=== PATIENT | male | born 1980 | race African-American/Black ===

== ENCOUNTER 2017-10-31 08:33 | Day surgery (SDC) | payer MEDICAID, SELFPAY ==
[2017-10-31] VITALS (12 sets, daily range): BP systolic 127–156; BP diastolic 80–95; PULSE 60–84; RESP 12–20; TEMP 36.6–36.7; O2SAT 94–100; BMI 32.8
--- NOTE | 2017-10-31 09:34 | HMH.ANESCL ---
[facility] Anesthesia Checklist - Structural Data Admitted From: Home Planned Operative Procedure/s: cysto w bladder bx Consent for Planned Operative Procedure(s) Verified: Yes Verified Documents: Surgical Consent - Airway Assessment C-Spine Mobility Assessed: Yes TMJ Mobility Assessed: Yes Dentition: Good Dentition - Neurological Assessment Level of Consciousness: Awake, Alert - Psychosocial Assessment Concerns Regarding Surgery: very nervous = versed 2mg iv - Anesthesia Plan Anesthesia Risk discussed: Yes Anesthesia Plan: Verified ASA Class: I Anesthesia Type: General [facility] Anesthesia HX I have reviewed the patient's past medical history: Yes Medical History: Denies:: Cancer, Diabetes Mellitus Type 1, Diabetes Mellitus Type 2, MRSA, Seizures Other Medical History: Denies: Blood Transfusion Reaction Amputation: No Fractures: No *Family Hx:: No significant family history
--- NOTE | 2017-10-31 11:13 | P.PN_ITS ---
[facility] Anesthesia Record Part II Discharge Time: 11:40 Destination: [facility] PACU nurse assessment reviewed?: Yes Patient Condition:: Good Anesthesia Complications:: None
--- NOTE | 2017-10-31 11:13 | P.PN_ITS ---
[facility] Anesthesia Record Part I Intake, IV Amount: 1,400 Estimated blood loss (mL): 0 Urine output (mL): 0 Blood Pressure: 127/86 SaO2: 94 Pulse Rate: 84 Respiratory Rate: 12 Temperature: 97.8 F Patient is:: Awake, Stable Stable to PACU at:: 11:10
--- NOTE | 2017-10-31 11:13 | HMH.ANESII ---
[facility] Anesthesia Record Part II Discharge Time: 11:40 Destination: [facility] PACU nurse assessment reviewed?: Yes Patient Condition:: Good Anesthesia Complications:: None
--- NOTE | 2017-10-31 14:37 | HMH.OPNOTE ---
Date of procedure: 10/31/17 Pre-op Diagnosis:: Pelvic discomfort and voiding symptoms Post-op Diagnosis:: Interstitial cystitis Procedure performed:: Cystoscopy with hydrodistention of the bladder Surgeon:: Ye Reddy MD FAIRING WORKER:: Mata Hatfield Anesthesia: GETA Estimated blood loss (mL): 10 Clinical Note:: Patient is here for cystoscopy. He has had several months of pelvic discomfort and pressure. He has been treated for presumed chronic prostatitis with antibiotic therapy as well as alpha blockers without change of symptoms. Since today for cystoscopy for further evaluation. Operative findings:: After satisfactory general anesthesia he was carefully placed in the dorsolithotomy position. The genital area was prepped and draped in normal fashion. The 20 Japanese cystoscopy sheath was introduced with the 30? lens. Pendulous, bulbous and prostatic urethra were unremarkable. Bladder was inspected entirely. He had 2 ureteral orifice ease on the left with the lateral orifice ease very patulous and likely refluxing. The bladder was filled. He had a rather small bladder capacity at 500 mL. Developed submucosal hemorrhages consistent with interstitial cystitis. Was cycled with maximum capacity being about 650 mL. He has some slight fracture of the bladder mucosa with bleeding. Bladder was drained and cystoscopy removed. Xylocaine jelly was instilled in the urethra. Operative note:: As above Condition: stable Disposition: PACU Complications:: None. She is placed onElmirin 100mg tid , pyrdium 200mg tid and bactrim ds bid 7 days. He will follow-up in 3 weeks
--- NOTE | 2017-10-31 14:40 | P.OP_ITS ---
Date of procedure: 10/31/17 Pre-op Diagnosis:: Pelvic discomfort and voiding symptoms Post-op Diagnosis:: Interstitial cystitis Procedure performed:: Cystoscopy with hydrodistention of the bladder Surgeon:: Ye Reddy MD LOCAL OWNER OPERATOR TRUCK DRIVER:: Mata Hatfield Anesthesia: GETA Estimated blood loss (mL): 10 Clinical Note:: Patient is here for cystoscopy. He has had several months of pelvic discomfort and pressure. He has been treated for presumed chronic prostatitis with antibiotic therapy as well as alpha blockers without change of symptoms. Since today for cystoscopy for further evaluation. Operative findings:: After satisfactory general anesthesia he was carefully placed in the dorsolithotomy position. The genital area was prepped and draped in normal fashion. The 20 Qatari cystoscopy sheath was introduced with the 30? lens. Pendulous, bulbous and prostatic urethra were unremarkable. Bladder was inspected entirely. He had 2 ureteral orifice ease on the left with the lateral orifice ease very patulous and likely refluxing. The bladder was filled. He had a rather small bladder capacity at 500 mL. Developed submucosal hemorrhages consistent with interstitial cystitis. Was cycled with maximum capacity being about 650 mL. He has some slight fracture of the bladder mucosa with bleeding. Bladder was drained and cystoscopy removed. Xylocaine jelly was instilled in the urethra. Operative note:: As above Condition: stable Disposition: PACU Complications:: None. She is placed onElmirin 100mg tid , pyrdium 200mg tid and bactrim ds bid 7 days. He will follow-up in 3 weeks
== END 2017-10-31 12:25 | disposition home or self-care (01) ==
PROVIDERS: Family Provider Physician Assistant; PCP Nurse Practitioner Family; Visit Provider Urology
PROC: 0TJB8ZZ Inspection of Bladder, Via Natural or Artificial Opening Endoscopic (ICD-10-PCS; CPT 52000; principal; 2017-10-31 10:00)
DX: N30.10 Interstitial cystitis (chronic) without hematuria (principal)
CPT/HCPCS: 52260; 96374; J2270

== ENCOUNTER 2020-02-07 11:34 | Emergency (ER) | payer MEDICAID, SELFPAY ==
--- NOTE | 2020-02-07 11:28 | ECG_ITS ---
APPROVED REPORT Exam: Resting ECG HR:59 bpm ECG Measurements Heart Rate 59 AXES WI 160 P 55 QRSd 90 QRS 26 QT 420 T 5 QTc 415 <Conclusion> Sinus bradycardia Possible Left atrial enlargement Left ventricular hypertrophy Nonspecific ST and T wave abnormality Abnormal ECG Electronically signed by : Arthur Pederson, 02/10/2020 17:14:26
--- NOTE | 2020-02-07 11:37 | HMH.EDGENADL ---
ED Disposition Clinical Impression: Epigastric pain, Hiatal hernia Disposition: Home, Self-Care Condition on Discharge: Good Instructions: DI for Hiatal Hernia, DI for Abdominal Pain-Adult Additional Instructions: Prilosec as prescribed. You are being provided with a list of physicians available for follow-up of your condition. Please call a physician on this list to arrange a follow-up appointment as soon as possible. Additional instructions for ABDOMINAL PAIN: See your physician as soon as possible for further evaluation. Return immediately if worsening abdominal pain, vomiting, shortness of breath, fever, vomiting of blood or abdominal distention. Prescriptions: Omeprazole Magnesium [Prilosec Otc 20mg Tab] 20 mg PO DAILY #10 tab Transmission Status: Pending to [facility] Referrals: Provider,Referral, MD [Primary Care Provider] - - Critical Care Critical Care Time: No Attestation: On , the high probability of a clinically significant, sudden or life threatening deterioration of the following system(s) required my full and direct attention, intervention and personal management. The time I documented below is in addition to time spent performing reported procedures but includes the following listed in this critical care notation. Medical Decision Making - Isacc Inquiry Pt receiving controlled substance: Yes Isacc was queried for this patient: No Reason not queried -: Emergent pt cond-no time Risks and benefits of using a controlled substance: were not discussed with pt by me Vital Signs: 02/07/20 11:41 02/07/20 11:46 02/07/20 12:13 Temperature 98.3 F Temperature Source Oral Pulse Rate [Right Brachial] 99 H 100 H 55 L Respiratory Rate 16 Blood Pressure [Right Arm] 139/86 139/86 178/101 H Blood Pressure Mean [Right Arm] 103 103 126 Blood Pressure Source [Right Arm] Automatic Cuff Automatic Cuff Automatic Cuff Blood Pressure Position [Right Arm] Sitting Sitting Sitting 02 Sat by Pulse Oximetry 98 98 100 Oxygen Delivery Method Room Air Room Air Room Air 02/07/20 12:48 02/07/20 13:59 Temperature Temperature Source Pulse Rate [Right Brachial] 74 52 L Respiratory Rate Blood Pressure [Right Arm] 167/107 H 120/75 Blood Pressure Mean [Right Arm] 127 90 Blood Pressure Source [Right Arm] Automatic Cuff Blood Pressure Position [Right Arm] Sitting Supine 02 Sat by Pulse Oximetry 100 99 Oxygen Delivery Method Room Air Room Air - Lab Data Lab Results 02/07/20 11:40: WBC 7.1, RBC 5.36, Hgb 14.9, Hct 44.6, MCV 83.2, MCH 27.7, MCHC 33.3, RDW 13.0, Plt Count 262, MPV 8.1, Neut % (Auto) 69.0, Lymph % (Auto) 26.5, [place] % (Auto) 3.6, Eos % (Auto) 0.6, Baso % (Auto) 0.3, Neut # (Auto) 4.9, Lymph # (Auto) 1.9, [place] # (Auto) 0.3, Eos # (Auto) 0.0, Baso # (Auto) 0.0 02/07/20 11:40: Sodium 142, Potassium 4.0, Chloride 106, Carbon Dioxide 27, Anion Gap 13.0, BUN 6 L, Creatinine 0.80, Estimated Creat Clear 160, Estimated GFR 107, Est GFR ( Amer) 130, Glucose 135 H, Calcium 10.0, Total Bilirubin 0.4, AST 46, ALT 61, Alkaline Phosphatase 72, Troponin I < 0.01, Total Protein 8.1, Albumin 4.6, Globulin 3.5 H, Albumin/Globulin Ratio 1.3, Amylase 79, Lipase 41 02/07/20 13:05: Urine Color Yellow, Urine Appearance Clear, Urine pH 8.5, Ur Specific [place] 1.010, Urine Protein Negative, Urine Glucose (UA) Negative, Urine Ketones Negative, Urine Blood Negative, Urine Nitrate Negative, Urine Bilirubin Negative, Urine Urobilinogen 0.2, Ur Leukocyte Esterase Negative, Urine RBC 5-10, Urine WBC Occasional, Ur Squamous Epith Cells Occasional, Urine Bacteria None Result diagrams: 02/07/20 11:40 02/07/20 11:40 Orders (Tests/Meds): ED MEDICATIONS Generic Name Dose Route Start Last Admin Trade Name Freq PRN Reason Stop Dose Admin Sodium Chloride 10 ml 02/07/20 12:49 Rad-Saline Flush 10ml Syringe IV 03/08/20 12:48 NEEDED PRN Maintain IV Site Sodium Chloride 8 ml 02/07/20
[2020-02-07 11:41] VITALS: BP 139/86; PULSE 99; RESP 16; TEMP 36.8; O2SAT 98; BMI 29.9
[2020-02-07 11:46] VITALS: BP 139/86; PULSE 100; O2SAT 98
--- NOTE | 2020-02-07 11:48 | CT_ITS ---
PROCEDURE: CT ABDOMEN PELVIS W CON CLINICAL INDICATION: SOA/ABD pain COMPARISON: CT ABDOMEN PELVIS W CON from 03/29/2019 TECHNIQUE: IV Contrast: 75ML OPTIRAY 350 Oral Contrast none given Axial images obtained with sagittal and coronal reformats. All CT scans at the facility use one or more dose reduction, viz: automated exposure control, ma/kV adjustment per patient size (including targeted exams where dose is matched to indication, i.e. head), or iterative reconstruction technique. FINDINGS: Lower thorax: The lower lung urban are clear and there is no pleural fluid. There is borderline cardiomegaly. ABDOMEN: Liver: No masses or biliary dilatation. Gallbladder: Somewhat distended but no definite gallstones are seen. Pancreas: No masses or peripancreatic fluid collections. Spleen: unremarkable Adrenals: unremarkable Kidneys/ureters: The kidneys are normal size and show symmetrical function both appearing normal. ABDOMEN & PELVIS: Stomach bowel: The stomach is normal in size and contains high density material likely secondary to ant acids which the patient admitted to taking before coming to the hospital emergency room. There is a small to moderate size sliding hiatal hernia. The small bowel appears normal. There is moderate stool in the ascending and transverse colon, the descending and sigmoid colon are mostly decompressed. Peritoneum: No abnormal fluid collections. No obvious inflammatory changes. No free air. Lymph nodes: No enlarged lymph nodes apparent. Vasculature: No evidence of abdominal aortic aneurysm. No retroperitoneal hemorrhage evident. Bones: No acute fracture PELVIS: Reproductive: unremarkable Bladder: Nondistended. No obvious stones or masses. Appendix: The appendix is normal caliber and air-filled IMPRESSION: Hiatal hernia along with scattered high density material within the stomach due to ingested Antacids, otherwise no acute abdominal or pelvic pathology identified Dictated by: Dr. Tomasz Colon MD 02/07/2020 13:[address] Tomasz Colon MD in [place] 02/07/2020 13:07
--- NOTE | 2020-02-07 11:48 | XR_ITS ---
PROCEDURE: XR CHEST 2V CLINICAL HISTORY: SOA/abd pain COMPARISON: CXR1VP XR chest portable from 04/05/2018 XR CHEST 2V from 03/29/2019 FINDINGS: The cardiomediastinal silhouette and pulmonary vascularity are within normal limits. The lungs are clear without infiltrates, suspicious nodules, or pleural effusions. Right hemidiaphragm is slightly elevated not significantly changed. No acute bony anomalies. IMPRESSION: No acute findings. Dictated by: Kp Duque MD 02/07/2020 19:22 Electronically signed by Kp Duque MD in [place] 02/07/2020 19:22
--- NOTE | 2020-02-07 12:12 | PC.NURSE ---
Pt is writhing around in bed, crying at this time.
[2020-02-07 12:13] VITALS: BP 178/101; PULSE 55; O2SAT 100
--- NOTE | 2020-02-07 12:29 | PC.NURSE ---
pt taken to ct
--- NOTE | 2020-02-07 12:45 | PC.NURSE ---
Pt returned from rad.
[2020-02-07 12:48] VITALS: BP 167/107; PULSE 74; O2SAT 100
[2020-02-07 12:58] LABS: Basophils % 0.3 % (0.1-2.0); Eosinophils % 0.6 % (0.1-12.0); Hematocrit 44.6 % (42.0-52.0); Hemoglobin 14.9 g/dL (14.1-18.0); Lymphocytes # 1.9 K/mm3 (0.7-4.5); Lymphocytes % 26.5 % (10-50); Mean Corpuscular HGB Conc 33.3 g/dL (31.8-35.4); Mean Corpuscular Hemoglobin 27.7 pg (27.0-31.2); Mean Corpuscular Volume 83.2 fl (80-94); Mean Platelet Volume 8.1 fl (7.4-10.4); Monocytes # 0.3 K/mm3 (0.1-1.0); Monocytes % 3.6 % (1.7-9.3); Neutrophils # 4.9 K/mm3 (1.8-7.8); Platelet Count 262 K/mm3 (142-424); Red Blood Count 5.36 M/mm3 (4.60-6.20); White Blood Count 7.1 K/mm3 (4.8-10.8)
[2020-02-07 13:02] LABS: Chloride 106 mmol/L (98-107); Sodium 142 mmol/L (136-145)
--- NOTE | 2020-02-07 13:03 | PC.NURSE ---
Pt up to restroom
[2020-02-07 13:05] LABS: Alanine Aminotransferase 61 U/L (12-78); Amylase 79 U/L (30-110); Aspartate Amino Transferase 46 U/L (17-59); Blood Urea Nitrogen 6 mg/dl (9-20); Carbon Dioxide 27 mmol/L (22.0-30.0); Creatinine Clearance Estimated 160 mL/min (50-200); Estimated Glomerular Filt Rate 107 ml/min (>60); GFR (African American) 130 ML/MIN (>60)
[2020-02-07 13:06] LABS: Albumin Level 4.6 g/dl (3.5-5.0); Albumin/Globulin Ratio 1.3 (1.1-1.8); Alkaline Phosphatase 72 U/L (38-126); Bilirubin,Total 0.4 mg/dl (0.2-1.3); Globulin 3.5 g/dL (1.3-3.2); Glucose 135 mg/dl (74-100); Lipase 41 U/L (23-300); Total Protein,Serum 8.1 g/dl (6.3-8.2)
[2020-02-07 13:07] LABS: Microscopic, Urine URINE MICROSCOPIC (MICROSCOPIC)
[2020-02-07 13:11] LABS: Appearance,Urine CLEAR (Clear); Bilirubin,Urine Negative (Negative); Blood, Urine Negative (Negative); Color,Urine YELLOW (Yellow); Glucose,Urine (UA) Negative (Negative); Ketones,Urine Negative (Negative); Leukocyte Esterase,Urine Negative (Negative); Nitrate,Urine Negative (Negative); PH,Urine 8.5 (5.0-8.5); Protein,Urine Negative (Negative); Urobilinogen,Urine 0.2 EU/dl (0.2)
[2020-02-07 13:23] LABS: Squamous Epithelial Cell,Urine Occasional #/hpf (0-5); WBC,Urine Occasional #/hpf (0-3)
[2020-02-07 13:32] LABS: Troponin I < 0.01 ng/ml (0.00-0.034)
[2020-02-07 13:59] VITALS: BP 120/75; PULSE 52; O2SAT 99
--- NOTE | 2020-02-07 14:03 | US_ITS ---
PROCEDURE: US GALLBLADDER CLINICAL INDICATION: epigastric pain Acute epigastric pain COMPARISON: No exams were available for comparison FINDINGS: Pancreas: Unremarkable/Not well seen Liver: Unremarkable. There is appropriate direction of blood flow within a non dilated portal vein. Right kidney: Unremarkable appearing. No hydronephrosis. Gallbladder: No stones are evident. There is no gallbladder wall thickening. Common duct is normal in diameter. There is a small amount of sludge in the gallbladder IMPRESSION: Small amount of gallbladder sludge otherwise negative gallbladder Dictated by: Kp Duque MD 02/07/2020 16:08 Electronically signed by Kp Duque MD in [place] 02/07/2020 16:08
--- NOTE | 2020-02-07 14:11 | PC.NURSE ---
pt to rad
--- NOTE | 2020-02-07 14:37 | PC.NURSE ---
back from gall bladder ultrasound
[2020-02-07 14:55] VITALS: BP 120/80; PULSE 74; RESP 16; TEMP 36.7; O2SAT 98
== END 2020-02-07 14:56 | disposition home or self-care (01) ==
PROVIDERS: Emergency Provider Emergency Medicine
DX: R10.13 Epigastric pain (principal); K44.9 Diaphragmatic hernia without obstruction or gangrene; F17.210 Nicotine dependence, cigarettes, uncomplicated
CPT/HCPCS: 71046; 74177; 76705; 80053; 81001; 82150; 83690; 84484; 85025; 93005; 96365; 96375; 99284; J2405; Q9967

== ENCOUNTER → 2020-07-20 18:29 | Outpatient (CLI) | payer MEDICAID, SELFPAY ==
[2020-07-20 18:54] LABS: Basophils % 0.4 % (0.1-2.0); Eosinophils # 0.1 K/mm3 (0.0-0.4); Eosinophils % 1.8 % (0.1-12.0); Hematocrit 43.1 % (42.0-52.0); Hemoglobin 14.6 g/dL (14.1-18.0); Lymphocytes # 1.9 K/mm3 (0.7-4.5); Lymphocytes % 43.8 % (10-50); Mean Corpuscular HGB Conc 33.9 g/dL (31.8-35.4); Mean Corpuscular Hemoglobin 29.4 pg (27.0-31.2); Mean Corpuscular Volume 86.6 fl (80-94); Mean Platelet Volume 9.4 fl (7.4-10.4); Monocytes # 0.2 K/mm3 (0.1-1.0); Monocytes % 5.7 % (1.7-9.3); Neutrophils # 2.1 K/mm3 (1.8-7.8); Neutrophils % 48.3 % (37.0-80.0); Platelet Count 241 K/mm3 (142-424); Red Blood Count 4.97 M/mm3 (4.60-6.20); Red Cell Distribution Width 13.5 % (11.5-17.5); White Blood Count 4.3 K/mm3 (4.8-10.8)
[2020-07-20 18:58] LABS: Chloride 102 mmol/L (98-107); Potassium 4.4 mmoL/L (3.5-5.1); Sodium 140 mmol/L (136-145)
[2020-07-20 19:00] LABS: Blood Urea Nitrogen 7 mg/dl (9-20); Estimated Glomerular Filt Rate 107 ml/min (>60); GFR (African American) 129 ML/MIN (>60)
[2020-07-20 19:01] LABS: Alanine Aminotransferase 30 U/L (12-78); Albumin Level 4.4 g/dl (3.5-5.0); Albumin/Globulin Ratio 1.4 (1.1-1.8); Alkaline Phosphatase 57 U/L (38-126); Anion Gap 9.4 mEq/L (5-15); Aspartate Amino Transferase 33 U/L (17-59); Bilirubin,Total 0.4 mg/dl (0.2-1.3); Calcium 9.6 mg/dl (8.4-10.2); Carbon Dioxide 33 mmol/L (22.0-30.0); Chol/HDL Ratio 3.9 (1-3.5); Cholesterol 182 mg/dl (140-200); Globulin 3.1 g/dL (1.3-3.2); Glucose 95 mg/dl (74-100); HDL Cholesterol 47 mg/dl (40-60); Total Protein,Serum 7.5 g/dl (6.3-8.2); Triglycerides 101 mg/dl (30-150); VLDL Cholesterol 20 mg/dL (0-40)
[2020-07-20 19:13] LABS: Direct LDL Cholesterol 99.68 mg/dL (100-129)
[2020-07-20 19:17] LABS: Free T4 (Free Thyroxine) 1.12 ng/dl (0.78-2.19)
[2020-07-20 19:31] LABS: Thyroid Stimulating Hormone 1.01 uIU/mL (0.465-4.68)
[2020-07-20 21:00] LABS: 25-OH Vitamin D, Total 12.9 ng/mL (30-100)
[2020-07-22 10:57] LABS: Hep A Ab, IgM Negative (Negative); Hep A Ab, Total Positive (Negative); Hep B Core Ab, Total Negative (Negative)
[2020-07-22 11:36] LABS: Hep B Surface Ab, Qual Non Reactive (.); Hepatitis C Antibody <0.1 s/co ratio (0.0-0.9)
== END ==
PROVIDERS: Visit Provider Emergency Medicine
DX: R10.13 Epigastric pain (principal); K44.9 Diaphragmatic hernia without obstruction or gangrene; K52.9 Noninfective gastroenteritis and colitis, unspecified; E55.9 Vitamin D deficiency, unspecified
CPT/HCPCS: 80053; 80061; 82306; 84439; 84443; 85025; 86704; 86706; 86708; 87380

== ENCOUNTER → 2020-08-05 09:58 | Outpatient (CLI) | payer MEDICAID, SELFPAY ==
--- NOTE | 2020-08-05 09:59 | NM_ITS ---
PROCEDURE: NM HEPATOBILIARY WO PHARM Referring Doctor: Jose Antonio Wilson Patient Age:40Y CLINICAL INDICATION: epigastric pain and gastroenteritis No gallstones on ultrasound COMPARISON: No exams were available for comparison TECHNIQUE: DOSE: 8.31 mCi TC Choletec FINDINGS: Homogeneous activity is present within the hepatic parenchyma. Prompt activity into the biliary tree Activity is present in the gallbladder by 5-10 minutes. delay of activity in the small bowel; small-bowel activity is evident on images subsequent to CCK administration.-This is a nonspecific observation but can be seen with sphincter of Oddi spasm or dysfunction The gallbladder ejection fraction is calculated to be 85 percent following 1.8 mcg CCK IV administration.. CCK-The patient had only slight discomfort/pain with CCK infusion. IMPRESSION: Prompt visualization of the gallbladder 85% EF following CCK administration Delayed visualization of activity in small bowel noted Very nonspecific observation but can be seen with sphincter of Oddi spasm or dysfunction 85 percent gallbladder ejection fraction following CCK but Dictated by: Michael Christy MD 08/05/2020 12:26 Michael Christy MD in [place] 08/05/2020 12:26
== END ==
PROVIDERS: PCP Emergency Medicine; Visit Provider Emergency Medicine
DX: R10.13 Epigastric pain (principal); K52.9 Noninfective gastroenteritis and colitis, unspecified; K44.9 Diaphragmatic hernia without obstruction or gangrene
CPT/HCPCS: 78226; A9537; J2805

== ENCOUNTER → 2020-09-01 17:54 | Outpatient (CLI) | payer OTHER, SELFPAY ==
[2020-09-01 19:28] LABS: Coronavirus 19 IgG Antibody Negative (Negative); Coronavirus 19 IgM Antibody Negative (Negative)
== END ==
PROVIDERS: Visit Provider Internal Medicine Gastroenterology
DX: Z01.812 Encounter for preprocedural laboratory examination (principal); Z20.828 Contact with and (suspected) exposure to other viral communicable diseases; Z13.810 Encounter for screening for upper gastrointestinal disorder; K21.9 Gastro-esophageal reflux disease without esophagitis
CPT/HCPCS: 36415; 86328

== ENCOUNTER 2020-09-04 08:31 | Day surgery (SDC) | payer OTHER, SELFPAY ==
[2020-09-01 12:44] VITALS: BMI 33.4
[2020-09-04] VITALS (7 sets, daily range): BP systolic 136–154; BP diastolic 88–98; PULSE 53–79; RESP 16–18; TEMP 36.3; O2SAT 97–100
--- NOTE | 2020-09-04 10:26 | P.PCN_ITS ---
[facility] Procedure Note Procedure Note:: Upper Endoscopy Procedure Report: Esophagogastroduodenoscopy with cold biopsies Endoscopost: Zain Nava II, MD Referring Physician: Jose Antonio Wilson MD Date of Procedure: September 04, 2020 Equipment: Olympus GIF 180 standard upper endoscope Sedation: MAC sedation Indications: Mr. Payan is a 40-year-old gentleman with dyspepsia. He has had epigastric abdominal discomfort for several months. He reports bloating and fullness. He has had some nausea and early satiety. He reports no significant reflux or belching. He has had no dysphagia or weight loss. He has some minor heartburn. He occasionally will have red stools and is not certain whether this could be some blood or something that he ingested. This is his first upper endoscopy. Procedure: Prior to the procedure, a history and physical exam was performed, and patient's medications and allergies were reviewed. The risks, benefits and alternatives of the sedation and procedure were discussed with the patient. All questions were answered and informed consent was obtained. The patient was brought to the procedure room. Patient identification and proposed procedure were verified by the physician and the nurse. The patient was placed in a left lateral decubitus position and the scope was passed under direct vision. Throughout the procedure, the patient's blood pressure, pulse, and oxygen saturations were monitored continuously. The upper GI endoscopy was accomplished without difficulty. The patient tolerated the procedure well. Findings: The scope was passed directly into the upper esophagus and advanced to the third portion of the duodenum. The post bulbar duodenum and duodenal bulb were normal with normal mucosa and conniventes. The scope was withdrawn through a normal duodenal bulb and pylorus into the stomach. There was some linear reactive gastropathy of the antrum of the stomach. The remainder of the antrum, body and fundus of the stomach were grossly normal. Upon retroflexion there was a very small sliding 1 to 2 cm hiatal hernia. 2 biopsies were taken in the antrum and along the lesser curvature for histology to rule out gastritis and/or H pylori. The scope was then withdrawn into the esophagus. There was a serrated Z-line and biopsies were taken at the GE junction. There was no evidence of reflux esophagitis or [place]'s. There were mild tertiary contractions and evidence of mild esophageal dysmotility. The remainder of the esophageal mucosa was normal. Impression: 1. Nonerosive GERD with mild esophageal dysmotility and very small sliding 1 to 2 cm hiatal hernia 2. Mild linear reactive gastropathy Plan: I will follow-up the biopsies and I will discuss the findings with the patient and family. 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 We will discuss dietary measures and treatment options. I would also consider diagnostic colonoscopy.
--- NOTE | 2020-09-04 10:42 | HMH.ANESCL ---
[facility] Anesthesia Checklist - Patient Identification Patient Identification: Arm Band - Structural Data Admitted From: Home Planned Operative Procedure/s: egd Consent for Planned Operative Procedure(s) Verified: Yes Verified Documents: Surgical Consent - Additional verifications Anesthesia Reactions: No Hx Blood Transfusions: No Blood Transfusion Reaction: No - Anesthesia Plan Anesthesia Risk discussed: Yes ASA Class: II Anesthesia Type: General [facility] History Medical History: Reports:: Hiatal Hernia Denies:: Cancer, Diabetes Mellitus Type 1, Diabetes Mellitus Type 2, Internal Pacemaker, MRSA, Seizures *Have you ever received a pneumonia vaccine?: No (unknown) *Have you received a flu vaccine this season?: No (unknown) Other Medical History: Denies: Blood Transfusion Reaction Anesthesia experience/problems:: none Other Surgeries: Yes: No Previous Surgery. No: Pacemaker Amputation: No Fractures: No - *Social History Smoking Status: Current every day smoker Tobacco Type: cigarettes # Packs/Day (cigarettes): 1 Alcohol Intake: current Alcohol Intake Frequency:: holidays/special occasions only Substance Use Type: marijuana *Occupational Status:: employed Housing: house Household Members: spouse *Travel in the last 8 weeks: None Family Hx:: Cancer, Diabetes, Hypertension, Stroke, Substance abuse, Alcoholism, Mental illness
== END 2020-09-04 11:40 | disposition home or self-care (01) ==
PROVIDERS: PCP Emergency Medicine; Visit Provider Internal Medicine Gastroenterology
PROC: 0DJ08ZZ Inspection of Upper Intestinal Tract, Via Natural or Artificial Opening Endoscopic (ICD-10-PCS; CPT 43235; principal; 2020-09-04 10:00)
DX: K21.9 Gastro-esophageal reflux disease without esophagitis; K22.4 Dyskinesia of esophagus; K31.9 Disease of stomach and duodenum, unspecified; K44.9 Diaphragmatic hernia without obstruction or gangrene
CPT/HCPCS: 43239

== ENCOUNTER → 2020-12-14 14:53 | Outpatient (POV) | payer OTHER, SELFPAY ==
[2020-12-16 14:18] LABS: H. pylori Breath Test Positive (Negative)
== END ==
PROVIDERS: Visit Provider Nurse Practitioner Family
DX: R10.13 Epigastric pain (principal); K30 Functional dyspepsia; B96.81 Helicobacter pylori [H. pylori] as the cause of diseases classified elsewhere; K58.1 Irritable bowel syndrome with constipation
CPT/HCPCS: 83013

== ENCOUNTER → 2021-03-29 11:13 | Outpatient (POV) | payer OTHER, SELFPAY | PROVIDERS: Visit Provider Nurse Practitioner Family | DX: Z00.00 Encounter for general adult medical examination without abnormal findings (principal) ==

== ENCOUNTER 2021-11-22 14:38 | Emergency (ER) | payer SELFPAY ==
--- NOTE | 2021-11-22 14:38 | ECG_ITS ---
APPROVED REPORT Exam: Resting ECG HR:68 bpm ECG Measurements Heart Rate 68 AXES MS 162 P 72 QRSd 101 QRS 40 QT 388 T 34 QTc 406 Conclusion SINUS RHYTHM WITH MARKED SINUS ARRHYTHMIA POSSIBLE LEFT ATRIAL ENLARGEMENT [-0.1mV P-WAVE IN V1/V2] POSSIBLE LEFT VENTRICULAR HYPERTROPHY [VOLTAGE CRITERIA PLUS LAE OR QRS WIDENING] NONSPECIFIC T-WAVE ABNORMALITY ABNORMAL ECG UNCONFIRMED REPORT Electronically signed by : Arthur Pederson MD 11/24/2021 10:14:04
[2021-11-22 14:43] VITALS: BP 150/97; PULSE 55; RESP 18; TEMP 36.6; O2SAT 99; BMI 31.6
--- NOTE | 2021-11-22 14:57 | HMH.EDCP ---
ED Disposition Clinical Impression: Atypical chest pain, Epigastric pain Disposition: Home, Self-Care Condition on Discharge: Good Instructions: DI for Atypical Chest Pain Prescriptions: Famotidine [Pepcid 20mg Tablet] 20 mg PO DAILY #20 tab Transmission Status: Pending to [facility] Referrals: Provider,MD Shellie [Primary Care Provider] - Jose Antonio Wilson MD [Staff Physician] - - Critical Care Critical Care Time: No Attestation: On 11/22/21, the high probability of a clinically significant, sudden or life threatening deterioration of the following system(s) required my full and direct attention, intervention and personal management. The time I documented below is in addition to time spent performing reported procedures but includes the following listed in this critical care notation. Medical Decision Making - Medical Records Medical records reviewed: Yes: I reviewed the patient's medical records. - Isacc Inquiry Pt receiving controlled substance: No Vital Signs: 11/22/21 14:43 11/22/21 15:53 Temperature 97.8 F Temperature Source Oral Pulse Rate 57 L Pulse Rate [Left Radial] 55 L Respiratory Rate 18 20 Blood Pressure 145/101 H Blood Pressure [Right Arm] 150/97 H Blood Pressure Mean [Right Arm] 114 Blood Pressure Source [Right Arm] Automatic Cuff Blood Pressure Position [Right Arm] Sitting 02 Sat by Pulse Oximetry 99 94 L Oxygen Delivery Method Room Air Room Air - Lab Data Lab Results 11/22/21 14:45: WBC 6.3, RBC 5.28, Hgb 14.2, Hct 46.0, MCV 87.2, MCH 27.0, MCHC 30.9 L, RDW 13.6, Plt Count 239, MPV 8.5, Neut % (Auto) 49.2, Lymph % (Auto) 42.9, [place] % (Auto) 5.6, Eos % (Auto) 0.9, Baso % (Auto) 1.5, Neut # (Auto) 3.1, Lymph # (Auto) 2.7, [place] # (Auto) 0.4, Eos # (Auto) 0.1, Baso # (Auto) 0.1 11/22/21 14:45: Sodium 140, Potassium 4.1, Chloride 105, Carbon Dioxide 29, Anion Gap 10.1, BUN 8 L, Creatinine 0.80, Estimated Creat Clear 161, Estimated GFR 106, Est GFR ( Amer) 128, Glucose 89, Calcium 9.1, Total Bilirubin 0.4, AST 53, ALT 40, Alkaline Phosphatase 52, Troponin I < 0.01, NT-Pro-B Natriuret Pep 14.2, Total Protein 7.5, Albumin 4.4, Globulin 3.1, Albumin/Globulin Ratio 1.4, Lipase 42 Result diagrams: 11/22/21 14:45 11/22/21 14:45 Orders (Tests/Meds): ED MEDICATIONS Generic Name Dose Route Start Last Admin Trade Name Freq PRN Reason Stop Dose Admin Sodium Chloride 8 ml 11/22/21 14:45 Sodium Chloride 0.9% 10ml Vial IV 12/22/21 14:44 NEEDED PRN dilute pepcid Discontinued Medications Generic Name Dose Route Start Last Admin Trade Name Freq PRN Reason Stop Dose Admin Belladonna Alkaloids 60 ml 11/22/21 14:57 11/22/21 15:01 Gi Cocktail 60ml Udc PO 11/22/21 14:58 60 ml ONCE ONE Administration Famotidine 20 mg 11/22/21 14:45 11/22/21 15:01 Famotidine 20mg/2ml Vial IV 11/22/21 14:46 20 mg ONCE ONE Administration Ketorolac Tromethamine 30 mg 11/22/21 14:45 11/22/21 15:01 Ketorolac 30mg/Ml Vial IV 11/22/21 14:46 30 mg ONCE ONE Administration ORDERS Category Date Time Status XR chest portable Stat Exams 11/22/21 15:44 Taken Troponin I Q3H Lab 11/22/21 17:45 Ordered Troponin I Q3H Lab 11/22/21 20:45 Ordered - Radiology Data #1 Image(s): Chest Image Reviewed: Yes I reviewed the patient's radiology results, Yes I reviewed the patient's radiology image, Yes I have reviewed radiologist's interpretation Preliminary Findings: Normal/NAD, No Fracture Seen - ECG Data Tracing #1 I reviewed this ECG and interpreted as documented below: Sinus rhythm with Sinus Arrhythmia. Nonspecific Changes. No Ventricular Rate 60 Bpm, Normal QTC. ECG initial impression date: 11/22/21 ECG initial impression time: 15:00 - Reevaluation(s) Time: 16:16 Reevaluation #1: On reevaluation, patient is feeling much better. Troponin was negative. I do believe patient symptoms more consistent with d
[2021-11-22 14:58] LABS: Basophils # 0.1 K/mm3 (0-0.2); Basophils % 1.5 % (0.1-2.0); Eosinophils # 0.1 K/mm3 (0.0-0.4); Eosinophils % 0.9 % (0.1-12.0); Hemoglobin 14.2 g/dL (14.1-18.0); Lymphocytes # 2.7 K/mm3 (0.7-4.5); Lymphocytes % 42.9 % (10-50); Mean Corpuscular HGB Conc 30.9 g/dL (31.8-35.4); Mean Corpuscular Volume 87.2 fl (80-94); Mean Platelet Volume 8.5 fl (7.4-10.4); Monocytes # 0.4 K/mm3 (0.1-1.0); Monocytes % 5.6 % (1.7-9.3); Neutrophils # 3.1 K/mm3 (1.8-7.8); Neutrophils % 49.2 % (37.0-80.0); Platelet Count 239 K/mm3 (142-424); Red Blood Count 5.28 M/mm3 (4.60-6.20); Red Cell Distribution Width 13.6 % (11.5-17.5); White Blood Count 6.3 K/mm3 (4.8-10.8)
[2021-11-22 15:03] LABS: Alanine Aminotransferase 40 U/L (12-78); Albumin Level 4.4 g/dl (3.5-5.0); Albumin/Globulin Ratio 1.4 (1.1-1.8); Alkaline Phosphatase 52 U/L (38-126); Anion Gap 10.1 mEq/L (5-15); Aspartate Amino Transferase 53 U/L (17-59); Bilirubin,Total 0.4 mg/dl (0.2-1.3); Blood Urea Nitrogen 8 mg/dl (9-20); Calcium 9.1 mg/dl (8.4-10.2); Carbon Dioxide 29 mmol/L (22.0-30.0); Chloride 105 mmol/L (98-107); Creatinine Clearance Estimated 161 mL/min (50-200); Estimated Glomerular Filt Rate 106 ml/min (>60); GFR (African American) 128 ML/MIN (>60); Globulin 3.1 g/dL (1.3-3.2); Glucose 89 mg/dl (74-100); Lipase 42 U/L (23-300); Potassium 4.1 mmoL/L (3.5-5.1); Sodium 140 mmol/L (136-145); Total Protein,Serum 7.5 g/dl (6.3-8.2)
[2021-11-22 15:16] LABS: NT Pro Brain Natriuretic Pep. 14.2 pg/mL (0-125)
[2021-11-22 15:27] LABS: Troponin I < 0.01 ng/ml (0.00-0.034)
--- NOTE | 2021-11-22 15:44 | XR_ITS ---
FINAL REPORT TECHNIQUE: Single view chest CLINICAL HISTORY: cough COMPARISON: 02/07/2020 FINDINGS: A single view of the chest was obtained. The heart and mediastinum are within normal limits. The lungs are clear. There is no pneumothorax. Osseous structures are unremarkable. IMPRESSION: No acute cardiopulmonary process. Reviewed, Interpreted and Dictated by Bk Long III, MD Transcribed by Cinthia Joseph Authenticated by Bk Long III, MD on 11/22/2021 05:12:10 PM [facility]
[2021-11-22 15:53] VITALS: BP 145/101; PULSE 57; RESP 20; O2SAT 94
[2021-11-22 16:33] VITALS: BP 159/111; PULSE 55; RESP 20; TEMP 36.6; O2SAT 99
== END 2021-11-22 16:36 | disposition home or self-care (01) ==
PROVIDERS: Emergency Provider Emergency Medicine
DX: R07.89 Other chest pain (principal); R10.13 Epigastric pain; K44.9 Diaphragmatic hernia without obstruction or gangrene; F17.210 Nicotine dependence, cigarettes, uncomplicated; Z79.1 Long term (current) use of non-steroidal anti-inflammatories (NSAID); Z79.52 Long term (current) use of systemic steroids; Z82.49 Family history of ischemic heart disease and other diseases of the circulatory system; Z83.3 Family history of diabetes mellitus; Z80.9 Family history of malignant neoplasm, unspecified; Z81.8 Family history of other mental and behavioral disorders; Z81.3 Family history of other psychoactive substance abuse and dependence; Z81.1 Family history of alcohol abuse and dependence
CPT/HCPCS: 71045; 80053; 83690; 83880; 84484; 85025; 93005; 96374; 96375; 99285

== ENCOUNTER 2022-07-02 06:07 | Emergency (ER) | payer OTHER, SELFPAY ==
[2022-07-02 06:10] VITALS: BP 161/110; PULSE 98; RESP 16; TEMP 36.8; O2SAT 97; BMI 32.8
[2022-07-02 06:18] VITALS: BP 161/110; PULSE 94; RESP 16; O2SAT 98
--- NOTE | 2022-07-02 06:23 | HMH.EDGENADL ---
Discharge Plan Disposition Patient Disposition: Home, Self-Care Condition: Fair Prescriptions Prescriptions: New guaifenesin 100 mg/5 mL liquid 200 mg PO Q6H PRN (Reason: congestion) Qty: 500 0RF No Action pantoprazole [Protonix] 20 mg tablet,delayed release (DR/EC) 20 mg PO DAILY Qty: 30 2RF buspirone 5 mg tablet 5 mg PO BID Qty: 60 2RF Referrals Follow up/Referrals: Jose Antonio Wilson MD [Primary Care Provider] - See instructions Activity Restrictions/Add. Instructions Additional Instructions/Restrictions: You have been evaluated for cough, congestion, body aches, diagnosed with influenza A. Please monitor your symptoms closely. Tylenol and Motrin for aches, pains, fever. Guaifenesin for cough. Follow-up with your primary care doctor in 1 to 2 days for symptom recheck. Return to the emergency department at once for any new or worsening symptoms, chest pain, difficulty breathing, other concerns. Clinical Impressions Clinical Impression: Influenza A Instructions Patient Instructions: DI for Influenza -- Adult Discharge ED Provider: Svetlana Benitez Adult HPI General Chief complaint: Upper Respiratory Infection Stated complaint: Fever,cough,ROLON,SOA,Diarrhea,Runny nose,body ache Time Seen by Provider: 07/02/22 06:20 Mode of Arrival: Ambulatory Source of Information: Patient Limitations: No Limitations Description of Symptoms (Recalled from ER Triage Doc. by RN): pt c/o fever, cough, body aches n/v/d x 2 days History of Present Illness HPI narrative: 42-year-old male presenting to the emergency department with cough, body aches, generalized malaise. Symptoms started 2 days ago. He felt generally unwell, scratchy throat. Frequent cough. Cough is worse at night, improves throughout the day. He now is having diffuse body aches, chills. Does not feel like eating and drinking. He denies known sick exposure. No abdominal pain, vomiting, headache, chest pain. He has tried [id number] cold and flu medication without relief. Smokes tobacco. Does not use inhalers. No recent antibiotics or steroid Related Data Previous Rx's Medication Instructions Recorded buspirone 5 mg tablet 5 mg PO BID #60 tabs 06/03/22 pantoprazole 20 mg tablet,delayed 20 mg PO DAILY #30 tabs 06/03/22 release (Protonix) guaifenesin 100 mg/5 mL oral liquid 200 mg (10 mL) PO Q6H PRN 07/02/22 congestion #500 mL Allergies Allergy/AdvReac Type Severity Reaction Status Date / Time No Known Allergies Allergy Verified 06/03/22 15:22 PFSH PFS Social History Smoking Status: Current every day smoker tobacco type: cigarettes packs per day: 1 alcohol intake: current substance use type: marijuana current occupational status: employed Travel in the last 8 weeks: None household members: spouse housing: house current occupation: [employer] current occupational exposures/hazards: No caffeine: Yes ROS Obtained: Yes All systems reviewed & no additional complaints except as documented Constitutional Constitutional: Reports body ache, Reports chills, Denies headache(s) and Reports malaise Eyes Eyes: Denies blurry vision and Denies irritation ENT Ears, Nose, Mouth, and Throat: Denies headache(s) and Reports sore throat Cardiovascular Cardiovascular: Denies chest pain and Denies diaphoresis Respiratory Respiratory: Reports chest congestion, Reports cough, Denies stridor and Denies wheezing Gastrointestinal Gastrointestingal: Denies abdominal pain, nausea or vomiting Musculoskeletal Musculoskeletal: Reports myalgias Integumentary/Breasts Skin/Breast: Denies redness and Denies rash Neurologic Neurologic: Denies headache(s) Allergic/Immunologic Allergic/Immunologic: Denies wheezing Physical Exam General General appearance: alert and in no apparent distress Head Head exam: atraumatic and normocephalic Eye Eye exam: Present normal appearance and EOMI; Absent conjunctival redness ENT EN
[2022-07-02 06:33] LABS: Coronavirus 19, PCR Not Detected (NotDetected); Influenza B, PCR Not Detected (NotDetected)
[2022-07-02 06:58] LABS: Influenza A, PCR Detected (NotDetected)
[2022-07-02 07:29] VITALS: BP 132/78; PULSE 78; RESP 20; TEMP 36.8; O2SAT 97
== END 2022-07-02 07:31 | disposition home or self-care (01) ==
PROVIDERS: Emergency Provider Emergency Medicine; PCP Emergency Medicine
DX: J10.1 Influenza due to other identified influenza virus with other respiratory manifestations (principal)
CPT/HCPCS: 99283; C9803; U0003; U0005

== ENCOUNTER → 2022-07-05 15:45 | Outpatient (CLI) | payer OTHER, SELFPAY ==
[2022-07-05 18:50] LABS: Basophils % 0.6 % (0.1-2.0); Eosinophils % 0.7 % (0.1-12.0); Hemoglobin 14.2 g/dL (14.1-18.0); Lymphocytes # 2.5 K/mm3 (0.7-4.5); Lymphocytes % 44.5 % (10-50); Mean Corpuscular HGB Conc 31.5 g/dL (31.8-35.4); Mean Corpuscular Hemoglobin 27.5 pg (27.0-31.2); Mean Corpuscular Volume 87.3 fl (80-94); Mean Platelet Volume 9.7 fl (7.4-10.4); Monocytes # 0.4 K/mm3 (0.1-1.0); Monocytes % 6.9 % (1.7-9.3); Neutrophils # 2.7 K/mm3 (1.8-7.8); Neutrophils % 47.2 % (37.0-80.0); Platelet Count 268 K/mm3 (142-424); Red Blood Count 5.15 M/mm3 (4.60-6.20); Red Cell Distribution Width 13.5 % (11.5-17.5); White Blood Count 5.6 K/mm3 (4.8-10.8)
[2022-07-05 18:53] LABS: Alanine Aminotransferase 55 U/L (12-78); Albumin Level 4.4 g/dl (3.5-5.0); Albumin/Globulin Ratio 1.6 (1.1-1.8); Alkaline Phosphatase 66 U/L (38-126); Anion Gap 18.8 mEq/L (5-15); Aspartate Amino Transferase 43 U/L (17-59); Bilirubin,Total 0.3 mg/dl (0.2-1.3); Blood Urea Nitrogen 11 mg/dl (9-20); Calcium 9.3 mg/dl (8.4-10.2); Carbon Dioxide 29 mmol/L (22.0-30.0); Chloride 97 mmol/L (98-107); Chol/HDL Ratio 4.8 (1-3.5); Cholesterol 172 mg/dl (140-200); Estimated Glomerular Filt Rate 55 ml/min (>60); GFR (African American) 67 ML/MIN (>60); Globulin 2.7 g/dL (1.3-3.2); Glucose 93 mg/dl (74-100); HDL Cholesterol 36 mg/dl (40-60); Potassium 3.8 mmoL/L (3.5-5.1); Sodium 141 mmol/L (136-145); Total Protein,Serum 7.1 g/dl (6.3-8.2); Triglycerides 186 mg/dl (30-150); VLDL Cholesterol 37 mg/dL (0-40)
[2022-07-05 19:03] LABS: Direct LDL Cholesterol 97.51 mg/dL (100-129)
[2022-07-05 19:10] LABS: Free T4 (Free Thyroxine) 1.18 ng/dl (0.78-2.19)
[2022-07-05 19:15] LABS: 25-OH Vitamin D, Total < 12.8 ng/mL (30-100)
[2022-07-05 19:23] LABS: Thyroid Stimulating Hormone 1.97 uIU/mL (0.465-4.68)
== END ==
PROVIDERS: PCP Emergency Medicine; Visit Provider Emergency Medicine
DX: K52.9 Noninfective gastroenteritis and colitis, unspecified (principal); E55.9 Vitamin D deficiency, unspecified; Z79.899 Other long term (current) drug therapy
CPT/HCPCS: 80053; 80061; 82306; 84439; 84443; 85025

== ENCOUNTER 2022-11-07 00:09 | Emergency (ER) | payer OTHER, SELFPAY ==
[2022-11-07 00:10] VITALS: BP 185/114; PULSE 81; RESP 19; TEMP 36.8; O2SAT 98; BMI 34.0
[2022-11-07 00:17] VITALS: BMI 27.7
--- NOTE | 2022-11-07 00:23 | HMH.EDABDPAI ---
Discharge Plan Disposition Patient Disposition: Home, Self-Care Chief Complaint: Abdominal Pain Prescriptions Prescriptions: No Action lisinopril 10 mg tablet 10 mg PO DAILY cholecalciferol (vitamin D3) 1,250 mcg (50,000 unit) capsule 1,250 mcg PO WEEKLY Referrals Follow up/Referrals: Jose Antonio Wilson MD [Primary Care Provider] - See instructions Clinical Impressions Clinical Impression: Gastroenteritis Instructions Patient Instructions: DI for Acute Abdominal Pain Discharge ED Provider: Katie (ED)Jose Antonio Abdominal Pain HPI General Chief Complaint: Abdominal Pain Stated Complaint: Abdominal pain Time Seen by Provider: 11/07/22 00:23 Mode of Arrival: Ambulatory Source of Information: Patient and Medical Record Limitations: No Limitations Description of Symptoms (Recalled from ER Triage Doc. by RN): 42 M presents with mid abdominal pain that started a few hours ago. Associates some nausea/vomiting/diarrhea since this started. Denies fever, but reports chills. Uncomfortable on arrival in triage. History of Present Illness HPI narrative: acute abd pain which started a few hrs ago with vomiting and reported diarrhea w/o blood - no fever or travel and no def exposure complaint: abdominal pain Onset (ago): hour(s) Consistency: intermittent Location: diffuse Severity: moderate Quality: cramping Associated symptoms: denies other symptoms Related Data Home Medications Medication Instructions Recorded Confirmed cholecalciferol (vitamin D3) 1,250 1,250 mcg PO WEEKLY Supplement 11/07/22 11/07/22 mcg (50,000 unit) capsule lisinopril 10 mg tablet 10 mg PO DAILY High blood pressure 11/07/22 11/07/22 Allergies Allergy/AdvReac Type Severity Reaction Status Date / Time No Known Allergies Allergy Verified 10/21/22 13:25 [facility] Disclaimer: The information contained in this section may have been updated after the patient was seen, as this information can be updated by other users. Social History Smoking Status: Current every day smoker tobacco type: cigarettes packs per day: 1 alcohol intake: current substance use type: marijuana current occupational status: employed Travel in the last 8 weeks: None household members: spouse housing: house current occupation: [employer] current occupational exposures/hazards: No caffeine: Yes ROS Obtained: Yes All systems reviewed & no additional complaints except as documented Physical Exam General General appearance: alert Head Head exam: normocephalic Eye Eye exam: Present PERRL and EOMI; Absent scleral icterus ENT ENT exam: Present mucous membranes moist Neck Neck exam: Present trachea midline Respiratory Respiratory exam: Present normal lung sounds bilaterally; Absent respiratory distress Cardiovascular Cardiovascular exam: Present regular rate Abdominal Exam Abdominal exam: Present soft and tenderness; Absent guarding, rebound or rigidity Abdominal tenderness: Present diffuse and mild Extremities Exam Extremities exam: Present full ROM Back Exam Back exam: Absent CVA tenderness (R) Neurological Exam Neurological exam: Present alert, oriented X3 and CN II-XII intact; Absent motor sensory deficit Psychiatric Psychiatric exam: Present normal affect Skin Skin exam: Absent rash Medical Decision Making Medical Records Medical records reviewed: Yes I reviewed the patient's medical records. Isacc Inquiry Pt receiving controlled substance: No Vital Signs: 11/07/22 00:10 11/07/22 01:00 Temperature 98.2 F Temperature Source Oral Pulse Rate 88 Pulse Rate [Left] 81 Respiratory Rate 19 Blood Pressure 142/92 H Blood Pressure [Right Arm] 185/114 H Blood Pressure Mean [Right Arm] 137 Blood Pressure Source [Right Arm] Automatic Cuff Blood Pressure Position [Right Arm] Sitting 02 Sat by Pulse Oximetry 98 97 Oxygen Delivery Method Room Air
--- NOTE | 2022-11-07 00:26 | CT_ITS ---
PROCEDURE INFORMATION: Exam: CT Abdomen And Pelvis With Contrast Exam date and time: 11/07/2022 1:10 AM Age: 42 years old Clinical indication: Nausea and vomiting; Additional info: Abd pain with n/v/d TECHNIQUE: Imaging protocol: Computed tomography of the abdomen and pelvis with contrast. Radiation optimization: All CT scans at this facility use at least one of these dose optimization techniques: automated exposure control; mA and/or kV adjustment per patient size (includes targeted exams where dose is matched to clinical indication); or iterative reconstruction. Contrast material: ISOVUE; Contrast volume: 75 ml; Contrast route: IV; REPORTING DATA: Count of CT and Cardiac NM exams in prior 12 months: This patient has received 0 known CTs and 0 known cardiac nuclear medicine studies in the 12 months prior to the current study. COMPARISON: CT ABDOMEN PELVIS W CON 02/07/2020 12:35 PM FINDINGS: Liver: Normal. No mass. Gallbladder and bile ducts: Normal. No calcified stones. No ductal dilation. Pancreas: Normal. No ductal dilation. Spleen: Normal. No splenomegaly. Adrenal glands: Normal. No mass. Kidneys and ureters: Normal. No hydronephrosis. Stomach and bowel: There is diffuse fatty hypertrophy of the colon wall suggesting a prior history of colitis. No prominent active inflammatory changes evident. No evidence of bowel obstruction or significant bowel wall thickening. Appendix: No evidence of appendicitis. Intraperitoneal space: Unremarkable. No free air. No significant fluid collection. Vasculature: Unremarkable. No abdominal aortic aneurysm. Lymph nodes: Unremarkable. No enlarged lymph nodes. Urinary bladder: Unremarkable as visualized. Reproductive: Unremarkable as visualized. Bones/joints: Unremarkable. No acute fracture. Soft tissues: Unremarkable. IMPRESSION: Fatty hypertrophy of the colon wall suggests prior history of colitis. Can not exclude mild acute colitis. No evidence of bowel obstruction.
[2022-11-07 00:39] LABS: Basophils % 0.3 % (0.1-2.0); Eosinophils # 0.1 K/mm3 (0.0-0.4); Eosinophils % 0.5 % (0.1-12.0); Hematocrit 47.3 % (42.0-52.0); Hemoglobin 14.7 g/dL (14.1-18.0); Lymphocytes # 0.9 K/mm3 (0.7-4.5); Lymphocytes % 10.1 % (10-50); Mean Corpuscular HGB Conc 31.2 g/dL (31.8-35.4); Mean Corpuscular Hemoglobin 27.3 pg (27.0-31.2); Mean Corpuscular Volume 87.7 fl (80-94); Mean Platelet Volume 8.2 fl (7.4-10.4); Monocytes # 0.3 K/mm3 (0.1-1.0); Monocytes % 3.4 % (1.7-9.3); Neutrophils # 7.9 K/mm3 (1.8-7.8); Neutrophils % 85.8 % (37.0-80.0); Platelet Count 280 K/mm3 (142-424); Red Blood Count 5.39 M/mm3 (4.60-6.20); Red Cell Distribution Width 13.8 % (11.5-17.5); White Blood Count 9.2 K/mm3 (4.8-10.8)
[2022-11-07 00:43] LABS: Alanine Aminotransferase 40 U/L (12-78); Albumin Level 4.8 g/dl (3.5-5.0); Albumin/Globulin Ratio 1.5 (1.1-1.8); Alkaline Phosphatase 57 U/L (38-126); Amylase 78 U/L (30-110); Aspartate Amino Transferase 42 U/L (17-59); Bilirubin,Total 0.5 mg/dl (0.2-1.3); Blood Urea Nitrogen 12 mg/dl (9-20); Calcium 8.8 mg/dl (8.4-10.2); Carbon Dioxide 31 mmol/L (22.0-30.0); Chloride 100 mmol/L (98-107); Creatinine Clearance Estimated 128 mL/min (50-200); Estimated Glomerular Filt Rate 82 ml/min (>60); GFR (African American) 99 ML/MIN (>60); Globulin 3.3 g/dL (1.3-3.2); Glucose 126 mg/dl (74-100); Lipase 35 U/L (23-300); Sodium 138 mmol/L (136-145); Total Protein,Serum 8.1 g/dl (6.3-8.2)
[2022-11-07 00:44] LABS: MANUAL DIFFERENTIAL MANUAL DIFFERENTIAL (MANUAL DIFF)
[2022-11-07 01:00] VITALS: BP 142/92; PULSE 88; O2SAT 97
[2022-11-07 01:18] LABS: Lymphocytes % 12 % (10-50); Monocytes % 1 % (2-9); Neutrophils % 87 % (42-76); Platelet Estimate Normal; RBC Morphology Normal; Total Cells Counted 100
[2022-11-07 01:23] LABS: Anion Gap 10.9 mEq/L (5-15); Potassium 3.9 mmoL/L (3.5-5.1)
[2022-11-07 01:44] LABS: Microscopic, Urine URINE MICROSCOPIC (MICROSCOPIC)
[2022-11-07 01:48] LABS: Appearance,Urine CLEAR (Clear); Bilirubin,Urine Negative (Negative); Blood, Urine TRACE-I (Negative); Color,Urine YELLOW (Yellow); Glucose,Urine (UA) Negative (Negative); Ketones,Urine Negative (Negative); Leukocyte Esterase,Urine Negative (Negative); Nitrate,Urine Negative (Negative); PH,Urine 7.5 (5.0-8.5); Protein,Urine TRACE (Negative); Urobilinogen,Urine 0.2 EU/dl (0.2)
[2022-11-07 02:09] LABS: RBC,Urine Occasional #/hpf (0-3); Squamous Epithelial Cell,Urine Occasional #/hpf (0-5)
[2022-11-07 02:41] LABS: C-Reactive Protein 2.6 mg/L (0-4)
[2022-11-07 02:54] LABS: Procalcitonin 0.032 ng/mL (0.0-2.0)
[2022-11-07 02:59] LABS: Erythrocyte Sedimentation Rate 1 mm/hr (0-15)
[2022-11-07 03:11] VITALS: BP 149/81; PULSE 84; RESP 17; TEMP 36.9; O2SAT 97
== END 2022-11-07 03:13 | disposition home or self-care (01) ==
PROVIDERS: Emergency Provider Emergency Medicine; PCP Emergency Medicine
DX: K52.9 Noninfective gastroenteritis and colitis, unspecified (principal)
CPT/HCPCS: 74177; 80053; 81001; 82150; 83690; 84145; 85007; 85025; 85651; 86140; 96360; 96374; 96375; 99285; J2405; Q9967

== ENCOUNTER → 2023-07-14 08:35 | Outpatient (CLI) | payer OTHER, SELFPAY ==
[2023-07-14 18:09] LABS: Basophils % 0.7 % (0.1-2.0); Eosinophils % 0.6 % (0.1-12.0); Hematocrit 49.3 % (42.0-52.0); Hemoglobin 16.1 g/dL (14.1-18.0); Lymphocytes # 2.1 K/mm3 (0.7-4.5); Lymphocytes % 36.1 % (10-50); Mean Corpuscular HGB Conc 32.7 g/dL (31.8-35.4); Mean Corpuscular Hemoglobin 28.4 pg (27.0-31.2); Mean Corpuscular Volume 86.8 fl (80-94); Mean Platelet Volume 9.8 fl (7.4-10.4); Monocytes # 0.4 K/mm3 (0.1-1.0); Monocytes % 7.2 % (1.7-9.3); Neutrophils # 3.3 K/mm3 (1.8-7.8); Neutrophils % 55.4 % (37.0-80.0); Platelet Count 282 K/mm3 (142-424); Red Blood Count 5.68 M/mm3 (4.60-6.20); Red Cell Distribution Width 13.7 % (11.5-17.5); White Blood Count 5.9 K/mm3 (4.8-10.8)
[2023-07-14 18:39] LABS: Alanine Aminotransferase 48 U/L (12-78); Albumin Level 4.7 g/dl (3.5-5.0); Albumin/Globulin Ratio 1.3 (1.1-1.8); Alkaline Phosphatase 55 U/L (38-126); Anion Gap 12.5 mEq/L (5-15); Aspartate Amino Transferase 46 U/L (17-59); Bilirubin,Total 0.4 mg/dl (0.2-1.3); Blood Urea Nitrogen 13 mg/dl (9-20); Calcium 9.3 mg/dl (8.4-10.2); Carbon Dioxide 30 mmol/L (22.0-30.0); Chloride 101 mmol/L (98-107); Chol/HDL Ratio 4.4 (1-3.5); Cholesterol 201 mg/dl (140-200); Estimated Glomerular Filt Rate 92 ml/min (>60); GFR (African American) 111 ML/MIN (>60); Globulin 3.5 g/dL (1.3-3.2); Glucose 99 mg/dl (74-100); HDL Cholesterol 46 mg/dl (40-60); Potassium 4.5 mmoL/L (3.5-5.1); Sodium 139 mmol/L (136-145); Total Protein,Serum 8.2 g/dl (6.3-8.2); Triglycerides 133 mg/dl (30-150); VLDL Cholesterol 27 mg/dL (0-40)
[2023-07-14 18:50] LABS: Direct LDL Cholesterol 112.05 mg/dL (100-129)
[2023-07-14 18:55] LABS: 25-OH Vitamin D, Total 42.7 ng/mL (30-100)
[2023-07-14 19:09] LABS: Thyroid Stimulating Hormone 0.47 uIU/mL (0.465-4.68)
[2023-07-14 20:37] LABS: Hemoglobin A1C 5.7 % (4.0-6.0)
== END ==
PROVIDERS: PCP Student in an Organized Health Care Education/Training Program; Visit Provider Student in an Organized Health Care Education/Training Program
DX: I10 Essential (primary) hypertension (principal); R73.9 Hyperglycemia, unspecified; E55.9 Vitamin D deficiency, unspecified; Z68.29 Body mass index [BMI] 29.0-29.9, adult; Z72.0 Tobacco use
CPT/HCPCS: 80053; 80061; 82306; 83036; 84443; 85025

== ENCOUNTER 2024-03-06 08:52 | Outpatient (CLI) | payer OTHER, SELFPAY | END 2024-03-06 23:59 | disposition home or self-care (01) | LOC: LAB.DROPOF 03-07 10:22 | PROVIDERS: PCP Nurse Practitioner Family; Visit Provider Nurse Practitioner Family | DX: J02.9 Acute pharyngitis, unspecified (principal); Z72.0 Tobacco use | CPT/HCPCS: 87070; 87581; 87632; 87635; 87798 ==

== ENCOUNTER 2024-08-01 08:40 | Outpatient (CLI) | payer OTHER, SELFPAY ==
[2024-08-01 18:29] LABS: Coronavirus 19, PCR Not Detected (NotDetected); Influenza B, PCR Not Detected (NotDetected)
[2024-08-01 23:38] LABS: Influenza A, PCR Detected (NotDetected)
== END 2024-08-01 23:59 | disposition home or self-care (01) ==
LOC: LAB.DROPOF 08-05 10:10
PROVIDERS: PCP Student in an Organized Health Care Education/Training Program; Visit Provider Student in an Organized Health Care Education/Training Program
DX: R50.9 Fever, unspecified (principal); J09.X9 Influenza due to identified novel influenza A virus with other manifestations; F17.210 Nicotine dependence, cigarettes, uncomplicated
CPT/HCPCS: 87636